=== PATIENT | male | born 1990 | race Caucasian/White ===

== ENCOUNTER 2016-10-03 11:13 | Outpatient (CLI) | payer MEDICARE, MEDICAID | END 2016-10-03 11:14 | disposition critical access hospital (66) | LOC: EMS 11:13 | PROVIDERS: ATTEND Surgery | DX: S71.112A Laceration without foreign body, left thigh, initial encounter (principal); W29.3XXA Contact with powered garden and outdoor hand tools and machinery, initial encounter; Y93.89 Activity, other specified; Y92.099 Unspecified place in other non-institutional residence as the place of occurrence of the external cause | CPT/HCPCS: A0425; A0427 ==

== ENCOUNTER 2016-10-03 11:40 | Emergency (ER) | payer MEDICARE, MEDICAID ==
[2016-10-03] MEDS ORDERED: LIDOCAINE 2%-EPI 1:100000 20 ML MDV SUBQ STA (12:15)
[2016-10-03] MEDS ORDERED: LIDOCAINE MPF 2%-EPI 1:200000 20 ML VIAL ONE (12:21)
[2016-10-03] MEDS ORDERED: ceFAZolin 1 GM in SODIUM CHLORIDE 0.9% MINIBAG 100 ML IV ONE (12:29)
--- NOTE | 2016-10-03 12:31 | ED Physician Documentation ---
PD HPI LOWER EXT INJURY - Stated complaint Stated Complaint: LEG LAC - Chief complaint Chief Complaint: Laceration - History obtained from History obtained from: Patient, Family - History of Present Illness PD HPI LOW EXT INJURY LOCATION: Left, Upper leg Type of injury: Laceration (circular saw) Where injury occurred: Home Timing - onset: Today Timing - duration: Hours (1) Timing - details: Abrupt onset Pain level max: 7 Pain level now: 3 Improved by: Rest Worsened by: Moving, Palpating Associated symptoms: No: Weakness, Numbness, Tingling, Swelling, Discolored Contributing factors: No: Anticoagulated Similar symptoms before: Has not had sx before Recently seen: Not recently seen Review of Systems Constitutional: denies: Fever, Chills Skin: denies: Rash Musculoskeletal: denies: Neck pain, Back pain Neurologic: denies: Focal weakness, Numbness, Headache PD PAST MEDICAL HISTORY - Past Medical History Past Medical History: Yes Neuro: Seizure disorder - Present Medications Home Medications: Ambulatory Orders Medication Instructions Recorded Confirmed Cephalexin [Keflex] 500 mg PO Q6H #28 capsule 10/03/16 Lamotrigine [Lamotrigine ER] 300 mg PO BID 10/03/16 10/03/16 Levetiracetam [Keppra] 100 mg PO DAILY PM 10/03/16 10/03/16 Levetiracetam [Keppra] 750 mg PO DAILY 10/03/16 10/03/16 - Allergies Allergies/Adverse Reactions: Allergies Allergy/AdvReac Type Severity Reaction Status Date / Time No Known Drug Allergies Allergy Verified 10/03/16 11:50 - Social History Does the pt smoke?: No Smoking Status: Never smoker - Immunizations Immunizations are current?: No Immunizations: TDAP >10years/unknown PD ED PE NORMAL - Vitals Vital signs reviewed: Yes - General General: Alert and oriented X 3, No acute distress, Well developed/nourished - HEENT HEENT: Moist mucous membranes - Neck Neck: Supple, no meningeal sign - Derm Derm: Warm and dry - Neuro Neuro: Alert and oriented X 3, No motor deficit, No sensory deficit - Psych Psych: Normal mood, Normal affect PD ED PE EXPANDED - Extremities ELLIS LE visual: 1 - laceration (6cm, linear, through subcutaneous fat layer. Muscle uninjured. No vascular injury. NVI.) Results - Vitals Vitals: Vital Signs - 24 hr 10/03/16 10/03/16 11:40 13:11 Temperature 36.7 C Heart Rate 78 74 Respiratory 16 16 Rate Blood Pressure 143/83 H 133/62 H O2 Saturation 96 99 Oxygen O2 Source Room air Procedures - Laceration (location) L thigh Length in cm: 6 Wound type: Linear, Into subcut fat, Clean Neurovascular status: Sensory intact, Motor intact, Vascular intact Anesthesia: Lidocaine 2% with epi Wound Preparation: Irrigated copiously NS Skin layer closure: [place] Other: Patient tolerated well, No complications, Neurovascular intact, Tetanus booster given (tdap) Complexity: Simple PD MEDICAL DECISION MAKING - ED course Complexity details: re-evaluated patient, considered differential, d/w patient, d/w family ED course: Patient with a laceration to the left thigh. Repaired with inocente. Tolerated well. Irrigated with 1 L of normal saline. Was given a dose of Ancef and will place on Keflex for home as this was a deep wound. The musculature is not involved. Ambulating well in the emergency department. Warnings of infection and instructions on wound care given at bedside. Also counseled on how to minimize scarring. Patient counseled regarding signs and symptoms for which I believe and urgent re-evaluation would be necessary. Patient with good understanding of and agreement to plan and is comfortable going home at this time This document was made in part using voice recognition software. While efforts are made to proofread this document, sound alike and grammatical errors may occur. Neurovascularly intact Departure - Departure Disposition: 01 Home, Self Care Clinical Impression: Laceration Condition: Good Instructions: ED Laceration Ext Sutr Stap Tape Follow-Up: your,doctor in 14 days for staple removal. [Other] Prescriptions: Cephalexin [Keflex] 500 mg PO Q6H #28 capsule Comments: Take all antibiotics until gone. Return if you worsen. You can use Motrin or Tylenol as needed for pain. The inocente should be removed in approximately 14 days with your doctor. Keep the wound clean. Return if you notice redness, swelling or drainage from the wound. Discharge Date/Time: 10/03/16 13:11
[2016-10-03] MEDS ORDERED: ceFAZolin 1 GM VIAL ONE (12:36)
[2016-10-03] MEDS ORDERED: SODIUM CHLORIDE FLUSH 0.9% 10 ML SYRINGE IVP ONE (12:45)
[2016-10-03] MEDS ORDERED: TETANUS/DIPHTHERIA/PERTUSSIS 0.5 ML SYRINGE IM ONE ×2 (12:49→12:57)
[2016-10-03 13:13] VITALS: BP 133/62
== END 2016-10-03 13:11 | disposition home or self-care (01) ==
LOC: EDUNIT# → ED 11:40
DX: S71.112A Laceration without foreign body, left thigh, initial encounter (principal); W31.2XXA Contact with powered woodworking and forming machines, initial encounter; Y92.018 Other place in single-family (private) house as the place of occurrence of the external cause; G40.909 Epilepsy, unspecified, not intractable, without status epilepticus; Z23 Encounter for immunization
CPT/HCPCS: 12002; 90471; 96365; 99283; 99284

== ENCOUNTER 2020-07-29 11:48 | Outpatient (CLI) | payer MEDICARE, MEDICAID | END 2020-07-29 11:49 | disposition critical access hospital (66) | LOC: EMS 11:48 | DX: R56.9 Unspecified convulsions (principal) | CPT/HCPCS: A0425; A0429 ==

== ENCOUNTER 2020-07-29 12:12 | Emergency (ER) | payer MEDICARE, MEDICAID ==
[2020-07-29 12:32] VITALS: BP 112/74
--- NOTE | 2020-07-29 12:39 | ED Physician Documentation ---
PD HPI SEIZURE - Stated complaint Stated Complaint: SEIZURE POSTICTAL - Chief complaint Chief Complaint: Neuro - History obtained from History obtained from: Patient, EMS - History of Present Illness Timing - onset: Today Witnessed: Witnessed Pain level max: 0 Pain level now: 0 - Additional information Additional information: 30-year-old male presents to the emergency department after a seizure today. He states he has seizures every few months. He has been taking his medications re gularly. No recent illness. No difficulty sleeping. Denies any injuries. No headache. No trauma. Nothing makes it better or worse. Currently asymptomatic Review of Systems Ten Systems: 10 systems reviewed and negative Constitutional: denies: Fever, Chills Eyes: denies: Photophobia Ears: denies: Ear pain Nose: denies: Rhinorrhea / runny nose, Congestion Respiratory: denies: Cough GI: denies: Abdominal Pain, Nausea, Vomiting, Diarrhea : denies: Dysuria Skin: denies: Rash Musculoskeletal: denies: Neck pain, Back pain Neurologic: reports: Seizure. denies: Focal weakness, Numbness, Confused, Headache, Head injury, LOC PD PAST MEDICAL HISTORY - Past Medical History Past Medical History: Yes Neuro: Seizure disorder - Past Surgical History Past Surgical History: Yes Neuro: Other - Present Medications Home Medications: Ambulatory Orders Medication Instructions Recorded Confirmed Lamotrigine [Lamotrigine ER] 300 mg PO BID 10/03/16 07/29/20 Levetiracetam [Keppra] 750 mg PO BID 10/03/16 07/29/20 - Allergies Allergies/Adverse Reactions: Allergies Allergy/AdvReac Type Severity Reaction Status Date / Time No Known Drug Allergies Allergy Verified 07/29/20 12:26 - Social History Does the pt smoke?: No Smoking Status: Never smoker Does the pt drink ETOH?: Yes Does the pt have substance abuse?: Yes Substance Use and Type: Marijuana, CBD oil / Products - Immunizations Immunizations are current?: No Immunizations: TDAP >10years/unknown PD ED PE NORMAL - Vitals Vital signs reviewed: Yes - General General: Alert and oriented X 3, No acute distress - HEENT HEENT: Atraumatic, PERRL, EOMI, Moist mucous membranes - Neck Neck: Supple, no meningeal sign, No bony TTP - Cardiac Cardiac: RRR, Strong equal pulses - Respiratory Respiratory: No respiratory distress, Clear bilaterally - Abdomen Abdomen: Soft, Non tender, Non distended - Back Back: No spinal TTP - Derm Derm: Warm and dry - Extremities Extremities: No edema, No calf tenderness / cord - Neuro Neuro: Alert and oriented X 3, pediatrician 2-12 intact, No motor deficit, No sensory deficit, Normal speech Eye Opening: Spontaneous Motor: Obeys Commands Verbal: Oriented GCS Score: 15 - Psych Psych: Normal mood, Normal affect Results - Vitals Vitals: Vital Signs - 24 hr 07/29/20 07/29/20 12:13 12:32 Temperature 37.4 C 36.4 C L Heart Rate 92 83 Respiratory 18 15 Rate Blood Pressure 154/104 H 112/74 O2 Saturation 94 100 Oxygen O2 Source Room air PD MEDICAL DECISION MAKING - ED course Complexity details: considered differential, d/w patient ED course: Patient with a known seizure disorder had his usual seizure activity today. He has his medications. He has been taking them. He declines any further work-up at this time. He would like to go home. Given no injuries and no changes to his medications, do not see any indication for urgent blood work at this time. Patient counseled regarding signs and symptoms for which I believe and urgent re-evaluation would be necessary. Patient with good understanding of and agreement to plan and is comfortable going home at this time This document was made in part using voice recognition software. While efforts are made to proofread this document, sound alike and grammatical errors may occur. Departure - Departure Disposition: 01 Home, Self Care Clinical Impression: Seizure Condition: Good Instructions: ED Seizure Recurrent Follow-Up: Your,doctor in 1 week [Other] Comments: Continue your current medications at home. Return if you worsen. Follow-up with your doctor for further care.
== END 2020-07-29 12:43 | disposition home or self-care (01) ==
LOC: EDUNIT# → ED 12:12
DX: G40.909 Epilepsy, unspecified, not intractable, without status epilepticus (principal)
CPT/HCPCS: 99283